=== PATIENT | female | born 1940 | race Caucasian/White ===

== ENCOUNTER 2018-01-28 09:01 | Day surgery (SDC) | payer MEDICARE, OTHER ==
[~2018-01-28] VITALS: Ht 167.6 cm; Wt 80.1 kg
[~2018-01-28 09:01] MED LIST: ASPI81CH PO; CARB200 PO; Omeprazole20 M1 PO; Percocet 5-3251 EACH PO; Tegretol200 MG PO; Triamterene W/1 EACH PO
[2018-01-28] MEDS ORDERED: CHOL10002 (09:36)
== END 2018-01-28 11:00 | disposition home or self-care (01) ==
LOC: ORSCSDS 09:01
PROVIDERS: Internal Medicine Gastroenterology
PROC: 0DBK8ZX Excision of Ascending Colon, Via Natural or Artificial Opening Endoscopic, Diagnostic (ICD-10-PCS; principal; 2018-01-28 10:15)
PROC: 0DBL8ZX Excision of Transverse Colon, Via Natural or Artificial Opening Endoscopic, Diagnostic (ICD-10-PCS; principal; 2018-01-28 10:15)
DX: Z12.11 Encounter for screening for malignant neoplasm of colon (principal); D12.2 Benign neoplasm of ascending colon; D12.3 Benign neoplasm of transverse colon; K64.8 Other hemorrhoids; K57.30 Diverticulosis of large intestine without perforation or abscess without bleeding; Z86.010 Personal history of colon polyps; I10 Essential (primary) hypertension; Z87.891 Personal history of nicotine dependence; Z79.899 Other long term (current) drug therapy
CPT/HCPCS: 88305; J7120

== ENCOUNTER → 2020-03-02 | Outpatient (CLI) | payer MEDICARE, OTHER ==
[~2020-03-02] MED LIST changes: +CHOL10002
== END | disposition home or self-care (01) ==
LOC: PLD 12:08 → LAB SHORT 12:08
DX: D22.5 Melanocytic nevi of trunk (principal)
CPT/HCPCS: 88305

== ENCOUNTER 2020-05-26 09:20 | Emergency (ER) | payer MEDICARE, OTHER ==
[~2020-05-26] VITALS: Ht 167.6 cm; Wt 86.2 kg
[2020-05-26] MEDS ORDERED: Neurontin800 MG PO (09:33)
[2020-05-26] MEDS ORDERED: Oxcarbazepine600 MG PO (09:34)
[2020-05-26 10:40] LABS: BASOPHILS ABSOLUTE AUTO 0.04 K/mm3 (0.00-0.23); BASOPHILS PERCENT AUTO 1 % (0-2); EOSINOPHILS PERCENT AUTO 2 % (0-6); Hematocrit 39.5 % (33.0-51.0); Hemoglobin 13.7 g/dL (11.5-16.0); IMMATURE GRAN ABSOLUTE AUTO 0.02 K/mm3 (0.00-0.10); IMMATURE GRAN PERCENT AUTO 0 % (0-1); LYMPHOCYTES ABSOLUTE AUTO 1.39 K/mm3 (0.84-5.20); LYMPHOCYTES PERCENT AUTO 24 % (21-46); MONOCYTES ABSOLUTE AUTO 0.56 K/mm3 (0.16-1.47); MONOCYTES PERCENT AUTO 10 % (4-13); Mean Corpuscular HGB 28.5 pg (26.0-34.0); Mean Corpuscular HGB Conc 34.7 g/dL (31.5-36.5); Mean Corpuscular Volume 82 fL (80-100); Mean Platelet Volume 9.2 fL (9.1-12.4); NEUTROPHILS ABSOLUTE AUTO 3.68 K/mm3 (1.96-9.15); NEUTROPHILS PERCENT AUTO 64 % (41-73); Platelet Count 273 K/mm3 (150-400); RDW Coefficient Variation 12.1 % (11.7-14.2); White Blood Cell Count 5.79 K/mm3 (4.00-11.30)
[2020-05-26 10:57] LABS: Anion Gap 7 mmol/L (6-16); Blood Urea Nitrogen 14 mg/dL (8-24); Bun/Creatinine Ratio 21.6 (12.0-20.0); CO2, Blood 28 mmol/L (21-32); Calcium, Blood 8.8 mg/dL (8.5-10.1); Chloride, Blood 94 mmol/L (98-108); Creatinine, Blood 0.65 mg/dL (0.40-1.00); Glomerular Filtration Rate >60 (60-); Glucose, Blood 115 mg/dL (70-99); Magnesium, Blood 2.1 mg/dL (1.6-2.4); Potassium, Blood 3.6 mmol/L (3.5-5.5); Sodium, Blood 129 mmol/L (136-145)
== END 2020-05-26 11:14 | disposition home or self-care (01) ==
LOC: ER 09:20
PROVIDERS: Emergency Medicine
DX: E87.1 Hypo-osmolality and hyponatremia (principal); I10 Essential (primary) hypertension; Z79.899 Other long term (current) drug therapy
CPT/HCPCS: 36415; 80048; 83735; 85025; 99283

== ENCOUNTER 2020-10-09 11:41 | Inpatient (IN) | payer MEDICARE, OTHER ==
[~2020-10-09] VITALS: Ht 167.6 cm; Wt 86.5 kg
[~2020-10-09 11:41] MED LIST changes: -CHOL10002; +Neurontin800 MG PO; +Oxcarbazepine600 MG PO; +VITAMIN D31000 UNI1 PO
[2020-10-09] MEDS ORDERED: PRINIVIL10 MG PO (12:01)
[2020-10-09 13:29] LABS: BASOPHILS ABSOLUTE AUTO 0.03 K/mm3 (0.00-0.23); BASOPHILS PERCENT AUTO 1 % (0-2); EOSINOPHILS ABSOLUTE AUTO 0.05 K/mm3 (0.00-0.68); EOSINOPHILS PERCENT AUTO 1 % (0-6); Hematocrit 40.5 % (33.0-51.0); Hemoglobin 14.4 g/dL (11.5-16.0); IMMATURE GRAN ABSOLUTE AUTO 0.06 K/mm3 (0.00-0.10); IMMATURE GRAN PERCENT AUTO 1 % (0-1); LYMPHOCYTES ABSOLUTE AUTO 1.02 K/mm3 (0.84-5.20); LYMPHOCYTES PERCENT AUTO 16 % (21-46); MONOCYTES ABSOLUTE AUTO 0.53 K/mm3 (0.16-1.47); MONOCYTES PERCENT AUTO 8 % (4-13); Mean Corpuscular HGB 28.7 pg (26.0-34.0); Mean Corpuscular HGB Conc 35.6 g/dL (31.5-36.5); Mean Corpuscular Volume 81 fL (80-100); Mean Platelet Volume 9.4 fL (9.1-12.4); NEUTROPHILS ABSOLUTE AUTO 4.68 K/mm3 (1.96-9.15); NEUTROPHILS PERCENT AUTO 74 % (41-73); Platelet Count 243 K/mm3 (150-400); RDW Coefficient Variation 11.7 % (11.7-14.2); RDW Standard Deviation 34.2 fL (35.1-46.3); Red Blood Cell Count 5.02 M/mm3 (3.80-5.20); White Blood Cell Count 6.37 K/mm3 (4.00-11.30)
[2020-10-09 13:43] LABS: Alanine Aminotransfer (ALT/SGP 48 U/L (12-78); Albumin, Blood 3.8 g/dL (3.4-5.0); Alk Phos 98 U/L (50-136); Anion Gap 10 mmol/L (6-16); Aspartate Aminotrans (AST/SGOT 32 U/L (12-37); Bilirubin, Total 0.4 mg/dL (0.1-1.0); Blood Urea Nitrogen 13 mg/dL (8-24); Bun/Creatinine Ratio 21.4 (12.0-20.0); CO2, Blood 24 mmol/L (21-32); Calcium, Blood 8.6 mg/dL (8.5-10.1); Chloride, Blood 86 mmol/L (98-108); Creatinine, Blood 0.61 mg/dL (0.40-1.00); Glomerular Filtration Rate >60 (60-); Glucose, Blood 105 mg/dL (70-99); Sodium, Blood 120 mmol/L (136-145); Total Protein, Blood 7.8 g/dL (6.4-8.2); Troponin I <0.015 ng/mL (0.000-0.040)
[2020-10-09] MEDS ORDERED: Neurontin800 MG PO (14:38)
[2020-10-09] MEDS ORDERED: OXCARBAZEPINE PO (14:38)
[2020-10-09] MEDS ORDERED: LUMIGAN2.5 ML BOTHEYES (14:38)
[2020-10-09 15:57] LABS: Source, Urine Clean Catch
[2020-10-09 16:02] LABS: Appearance, Urine Hazy (Clear); Bilirubin, Urine Neg (Neg); Blood, Urine Neg (Neg); Color, Urine Yellow (P-Yellow); Glucose Qualitative, Urine Neg (Neg); Ketones, Urine 3+ (Neg); Leukocyte Esterase, Urine 2+ (Neg); Nitrite, Urine Neg (Neg); Protein, Urine Neg (Neg); Urobilinogen, Urine NORM (Normal)
[2020-10-09 16:17] LABS: Bacteria Rare /hpf; Red Blood Cells, Urine 0-2 /hpf (0-2); Squamous Epithelial Cells Rare /hpf (Few); Transitional Epithelial Cells Few /hpf (0-Rare)
--- NOTE | 2020-10-09 17:41 | NUR ---
ADMISSION-HYPONATREMIA PT ADMITTED FROM ER AT 1610. PT A&OX 4. PLEASANT. STANDBY ASSIST. PT C/O ONLY OF WEAKNESS FOR APPROX 1 WEEK OR MORE. 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 STATES IT HAS NEVER BEEN THIS LOW. PT HAS RECOLLECTION OF FALL TODAY. DENIES INJURY. PT ALSO REPORTS STARTING NEW DIET APPROX 1 WEEK AGO. HTN NOTED. LUNGS CLEAR. MAEW. WILL CONTINUE TO MONITOR UNTIL REPORT TO ONCOMING NURSE.
--- NOTE | 2020-10-09 17:54 | NUR ---
DR CARLOS CONSULTED. DIFFICULTIES OBTAINING ADEQUATE IV ACCESS. NA TAB SCHEDULED FOR 2100 GIVEN. REPEAT NA RESULTED 119. DR CARLOS REQUESTED NA 3% STARTED AT 20 ML/HR. STARTED PERIPHERALLY PER LILIA FILLING AND STAPLING MACHINE OPERATOR THROUGH 22 G PIV. PLAN FOR FREQUENT CHECKS, REPEAT LABS AT 1900. HIGH PROTEIN, 1L FLUID RESTRICTION DIET ORDERED.
--- NOTE | 2020-10-09 19:30 | NUR ---
PATIENT RESTING QUIETLY WITH NO COMPLAINTS AT THIS TIME. 3% SODIUM INFUSING AT 20 CC/HR. LABS AND RATE PER DOCTOR CARLOS.
--- NOTE | 2020-10-09 19:51 | NUR ---
DOCTOR TERRANCE NOTIFIED OF SODIUM LEVEL, WILL CONTINUE 3% SODIUM AT 20 CC/HR AND REDRAW LEVEL [id number]
--- NOTE | 2020-10-09 22:09 | NUR ---
DOCTOR TERRANCE NOTIFIED OF SODIUM LEVEL. DC 3% SODIUM AND SL IV. HAVE AM LABS DRAWN AT 0200 CALL IF SODIUM IS <120 OR >128
[2020-10-10 02:11] LABS: Hematocrit 37.5 % (33.0-51.0); Hemoglobin 13.2 g/dL (11.5-16.0); Mean Corpuscular HGB 28.6 pg (26.0-34.0); Mean Corpuscular HGB Conc 35.2 g/dL (31.5-36.5); Mean Corpuscular Volume 81 fL (80-100); Mean Platelet Volume 9.4 fL (9.1-12.4); Platelet Count 265 K/mm3 (150-400); RDW Coefficient Variation 11.8 % (11.7-14.2); RDW Standard Deviation 34.6 fL (35.1-46.3); Red Blood Cell Count 4.62 M/mm3 (3.80-5.20); White Blood Cell Count 7.94 K/mm3 (4.00-11.30)
[2020-10-10 02:27] LABS: Anion Gap 8 mmol/L (6-16); Blood Urea Nitrogen 15 mg/dL (8-24); Bun/Creatinine Ratio 23.3 (12.0-20.0); CO2, Blood 26 mmol/L (21-32); Calcium, Blood 8.4 mg/dL (8.5-10.1); Chloride, Blood 92 mmol/L (98-108); Creatinine, Blood 0.65 mg/dL (0.40-1.00); Glomerular Filtration Rate >60 (60-); Glucose, Blood 120 mg/dL (70-99); Sodium, Blood 126 mmol/L (136-145)
[2020-10-10 02:36] LABS: Prolactin 7.9 ng/mL (2.74-19.64); Thyroid Stimulating Hormone 0.691 uIU/mL (0.360-4.800)
--- NOTE | 2020-10-10 05:57 | NUR ---
SUMMARY PATIENT SLEEPING OFF AND ON T/O NIGHT. 3% SODIUM REMAINS OFF. NO C/O DIZZINESS. ABLE TO AMBULATE TO TOILET WITH MIN ASSIST.
--- NOTE | 2020-10-10 08:41 | NUR ---
PT SITTING UP IN BED. A/O X4. PT STATES SHE GETS A LITTLE LIGHT HEADED WITH AMBULATION. STEADY ON FEET. PT HAS A TELEMED APPT WITH MD FROM [place] THIS AM THAT DAUGHTER IS HERE TO HELP HER WITH. HAS BEEN CHANGED TO MEDICAL STATUS. NO SIGN OF DISTRESS.
--- NOTE | 2020-10-10 15:47 | NUR ---
PT DOING WELL TODAY. A/O X4 AND STEADY ON FEET. PT TRANSFERED TO MEDICAL FLOOR. REPORT GIVEN TO EDMAR WALTON WHO WILL ASSUME CARE. NO SIGN OF DISTRESS.
--- NOTE | 2020-10-10 17:22 | NUR ---
Spiritual care note: Mrs. Lawson is very pleasant and tells me she is hopeful for complete recovery. She feels well-loved and supported by family and denied fear/concerns. Prayer provided. I will remain available.
--- NOTE | 2020-10-10 18:39 | NUR ---
PT ARRIVED TO THE UNIT VIA WHEEL CHAIR AT 1549. SHE WAS ORIENTED TO THE ROOM, HER DAUGHTER AT BEDSIDE. SHE IS EATING AND DRINKING WELL. SHE WAS UP TO THE RESTROOM. ORTH VITALS WERE TAKEN AND SHE HAD AN INCREASE IN BP WITH CHANGE OF POSTIONS. SHE WILL RECIVE AN ATCH STIMULATION TEST IN THE MORNING. HER BED IS IN THE LOW POSITION AND CALL LIGHT IS WITHIN REACH.
--- NOTE | 2020-10-11 04:27 | NUR ---
ART MODEL SUMMARY PT IS AXO X4 ON RM AIR. PT HAS SLEPT FOR MOST OF THE SHIFT DENYING ANY PAIN OR NAUSEA. PT IS STILL UNSTEADY ON HER FEET W A WEAKENED GAIT. NO NEW S/S THIS SHIFT. TM
[2020-10-11 05:46] LABS: Albumin, Blood 3.6 g/dL (3.4-5.0); Anion Gap 4 mmol/L (6-16); Blood Urea Nitrogen 11 mg/dL (8-24); Bun/Creatinine Ratio 19.6 (12.0-20.0); CO2, Blood 27 mmol/L (21-32); Calcium, Blood 8.8 mg/dL (8.5-10.1); Chloride, Blood 98 mmol/L (98-108); Creatinine, Blood 0.56 mg/dL (0.40-1.00); Glomerular Filtration Rate >60 (60-); Glucose, Blood 101 mg/dL (70-99); Phosphorus, Blood 3.8 mg/dL (2.5-4.9); Potassium, Blood 4.2 mmol/L (3.5-5.5); Sodium, Blood 129 mmol/L (136-145)
[2020-10-11] MEDS ORDERED: LACO50TA2 PO (11:54)
--- NOTE | 2020-10-11 15:14 | NUR ---
PT DISCHARGED FROM THE UNIT. IV REMOVED. MEDICATIONS FAXED TO PHARMACY. DISCHARGE INSTUCTIONS REVIEWED. SHE LEFT THE UNIT VIA WHEELCHAIR. FAMILY WILL DRIVE HER HOME
== END 2020-10-11 13:30 | disposition home or self-care (01) | DRG 641 ==
LOC: ER 11:41 → ICUE 15:20 → ICUW 15:20 → ICUE 15:58 → MEDS 10-10 15:49
PROVIDERS: Emergency Medicine; Internal Medicine; Nurse Practitioner Acute Care; ADMIT Family Medicine
DX: E87.1 Hypo-osmolality and hyponatremia (principal); I10 Essential (primary) hypertension; G50.0 Trigeminal neuralgia; Z20.822 Contact with and (suspected) exposure to COVID-19; R56.9 Unspecified convulsions
CPT/HCPCS: 36415; 70450; 72125; 80048; 80053; 80069; 80400; 81001; 82533; 83605; 83930; 83935; 84146; 84295; 84300; 84443; 84484; 84550; 85025; 85027; 87086; 93005; 93010; 99285-25; A9270; J0834; J1650

== ENCOUNTER → 2021-10-02 | Outpatient (CLI) | payer MEDICARE, OTHER ==
[~2021-10-02] MED LIST changes: +LACO50TA2 PO; +LUMIGAN2.5 ML BOTHEYES; +OXCARBAZEPINE PO; +PRINIVIL10 MG PO
== END | disposition home or self-care (01) ==
LOC: LAB SHORT 09:32
DX: L81.4 Other melanin hyperpigmentation (principal); L81.8 Other specified disorders of pigmentation; L08.89 Other specified local infections of the skin and subcutaneous tissue
CPT/HCPCS: 88305; 88342